=== PATIENT | male | born 1995 | race Caucasian/White ===

== ENCOUNTER 2022-01-09 01:20 | Emergency (ER) | payer OTHER ==
[~2022-01-09] VITALS: Ht 177.8 cm; Wt 76.2 kg
[2022-01-09 01:24] VITALS: BP 145/97
--- NOTE | 2022-01-09 01:31 | NUR ---
PT TO LOBBY TO A/W BED
--- NOTE | 2022-01-09 02:16 | NUR ---
PT AMBULATED TO BED #2
--- NOTE | 2022-01-09 02:26 | NUR ---
COVERING PRIMARY RN FOR LUNCH RELIEF. SEE COMPLETE ASSESSMENT
--- NOTE | 2022-01-09 02:40 | NUR ---
RECEIVED IN BED 2 WITH C/O BOWEL LEAKAGE S/P BM. INTERMINTENTLY WITH BLOOD x1 YEAR, RECENTLY GETTING WORSE IN OCTOBER MEDHX- DENIES BLAKEA
--- NOTE | 2022-01-09 03:00 | NUR ---
RECTAL EXAM PER DR DUTTA. [employer], MYSELF AT BEDSIDE
[2022-01-09] MEDS ORDERED: LIDO28CR2 TP (03:42)
[2022-01-09] MEDS ORDERED: PSYL0.4C2 PO (03:42)
[2022-01-09] MEDS ORDERED: MIRABULK PO (03:42)
[2022-01-09 03:55] VITALS: BP 145/97
--- NOTE | 2022-01-09 03:56 | NUR ---
Patient discharged with v/s stable. Written and verbal after care instructions given and explained. Patient verbalized understanding. Ambulatory with steady gait. All questions addressed prior to discharge. Advised to follow up with PMD.
== END 2022-01-09 03:56 | disposition home or self-care (01) ==
LOC: MED 01:20
DX: K64.9 Unspecified hemorrhoids (principal); R03.0 Elevated blood-pressure reading, without diagnosis of hypertension; Z79.899 Other long term (current) drug therapy
CPT/HCPCS: 99281

== ENCOUNTER 2023-02-01 20:05 | Emergency (ER) | payer OTHER ==
[~2023-02-01] VITALS: Ht 180.3 cm; Wt 86.2 kg
[~2023-02-01 20:05] MED LIST: MIRABULK PO; PSYL0.4C2 PO
[2023-02-01 20:56] VITALS: BP 151/85
[2023-02-01 21:02] VITALS: BP 151/85
--- NOTE | 2023-02-01 21:03 | NUR ---
Pt triaged and placed in WR. Appears in no acute distress. Breathing adequately on RA.
--- NOTE | 2023-02-01 22:22 | NUR ---
PT CALLED NO ANSWER
--- NOTE | 2023-02-01 22:44 | NUR ---
PT CALLED NO ANSWER
--- NOTE | 2023-02-01 23:05 | NUR ---
PT CALLED x3 IN LOBBY AND OUTSIDE WITH NO ANSWER. PT LWBS
== END 2023-02-01 23:05 | disposition left against medical advice (07) ==
LOC: MED 20:05
DX: U07.1 COVID-19 (principal); Z53.21 Procedure and treatment not carried out due to patient leaving prior to being seen by health care provider
CPT/HCPCS: 99281